=== PATIENT | male | born 1940 | race Caucasian/White ===

== ENCOUNTER → 2018-01-20 | Outpatient (CLI) | payer OTHER ==
[~2018-01-20] MED LIST: AMLO10TA3 PO; LEVO100T7 PO; LPT/40 PO
--- NOTE | 2018-01-20 16:11 | DIAGNOSTIC IMAGING REPORT ---
CHEST 2 VIEWS ROUTINE CLINICAL HISTORY: Cough, lower lobe rhonchi. COMPARISON STUDY: No previous studies for comparison. FINDINGS: The heart is normal in size. There is a linear lower lobe subsegmental atelectasis. There is no failure. There is no focal pulmonary consolidation. There are no pleural effusions.[ IMPRESSION: Basilar atelectasis/scarring. No evidence of failure. No evidence of focal pulmonary consolidation Electronically signed by: Marko Bowers M.D. 01/20/2018 4:10 PM Dictated Date/Time: 01/20/2018 4:09 PM
== END | disposition home or self-care (01) ==
LOC: C.RAD1850 15:51
PROVIDERS: ATTEND Family Medicine
DX: R05 Cough (principal); R91.8 Other nonspecific abnormal finding of lung field